=== PATIENT | male | born 1985 ===

== ENCOUNTER 2020-10-11 19:59 | Emergency (ER) | payer SELFPAY ==
[~2020-10-11] VITALS: Ht 180.3 cm; Wt 113.1 kg
[2020-10-11 20:03] VITALS: BP 140/98
[2020-10-11] MEDS ORDERED: ACETAMINOPHEN 500 MG TABLET ONE (20:28)
[2020-10-11] MEDS ORDERED: IBUPROFEN 200 MG TABLET ONE (20:28)
[2020-10-11] MEDS ORDERED: IBUPROFEN 600 MG TABLET ONE (20:29)
[2020-10-11] MEDS ORDERED: ACETAMINOPHEN 500 MG TABLET PO ONE (20:30)
[2020-10-11] MEDS ORDERED: IBUPROFEN 800 MG TABLET PO ONE (20:30)
== END 2020-10-11 21:18 | disposition home or self-care (01) ==
LOC: ED 21:15
DX: J00 Acute nasopharyngitis [common cold] (principal); Z20.822 Contact with and (suspected) exposure to COVID-19; B97.89 Other viral agents as the cause of diseases classified elsewhere; H66.001 Acute suppurative otitis media without spontaneous rupture of ear drum, right ear; R50.9 Fever, unspecified
CPT/HCPCS: 71045; 99284; U0003; U0005